=== PATIENT | male | born 1950 ===

== ENCOUNTER 2022-06-26 10:48 | Inpatient (IN) | payer OTHER, MEDICARE ==
[2022-06-26] VITALS (488 sets, daily range): BP systolic 100–129; BP diastolic 70–83; PULSE 81–93; TEMP 97.3–98.7; O2SAT 90–100
[~2022-06-26] VITALS: Ht 180.3 cm; Wt 88.7 kg
--- NOTE | 2022-06-26 13:12 | NUR ---
PATIENT TAKEN TO SURGERY AT THIS FOR TRACHEOSTOMY AND PEG TUBE PLACEMENT.
--- NOTE | 2022-06-26 13:32 | NUR ---
PT ARRIVES TO ICU ROOM 5 AT THIS TIME. DIRECT ADMIT FROM DR. TAVERA. PT TO UNDERGO TRACHEOSTOMY AND PEG TUBE PLACEMENT AT 1500 TODAY DUE TO THROAT MASS.
[2022-06-26] MEDS ORDERED: PROAIR HFA0.09 MG/AC IH (14:20)
[2022-06-26] MEDS ORDERED: TYLENOL 325MG325 MG PO (14:20)
[2022-06-26] MEDS ORDERED: ZYLOPRIM 100MG100 MG PO (14:21)
[2022-06-26] MEDS ORDERED: CALCIUM 600600 MG PO (14:22)
[2022-06-26] MEDS ORDERED: ASPIRIN E.C. 8181 MG PO (14:22)
[2022-06-26] MEDS ORDERED: ZYRTEC 10MG10 MG PO (14:23)
[2022-06-26] MEDS ORDERED: FLONASEALLERGY NS (14:24)
[2022-06-26] MEDS ORDERED: MOBIC15 MG PO (14:25)
[2022-06-26] MEDS ORDERED: MULTI VITAMINS1 TAB PO (14:26)
[2022-06-26] MEDS ORDERED: FLOMAX 0.40.4 MG/CAP PO (14:26)
[2022-06-26 14:38] LABS: BASO % 0.5 % (0.0-2.0); EOS # 0.1 K/mm3 (0.0-0.7); EOS % 1.4 % (0.0-4.0); GRAN # 5.3 K/mm3 (1.4-6.5); GRAN % 63.5 % (42.2-75.2); HEMOGLOBIN 12.1 g/dl (13.5-18.0); LYMPH # 2.3 K/mm3 (1.2-3.4); MEAN CELL VOLUME 88 fl (80.0-100.0); MEAN CORPUSCULAR HEMOGLOBIN 31 pg (27-31); MEAN CORPUSCULAR HGB CONC 35 g/dl (33.0-37.0); MEAN PLATELET VOLUME 10.8 fl (7.4-10.4); MONO # 0.5 K/mm3 (0.1-0.6); MONO % 6.5 % (1.7-9.3); PLATELET COUNT 219 K/mm3 (130-400); RED BLOOD COUNT 3.95 M/mm3 (4.20-5.60); REDCELL DISTRIBUTION WIDTH-CV 12.6 % (11.5-14.5)
[2022-06-26 14:42] LABS: HEMATOCRIT 34.7 % (42.0-52.0)
[2022-06-26 14:52] LABS: ALBUMIN 3.6 gm/dL (3.4-4.8); CALCIUM 10.2 mg/dL (8.4-10.2); CREATININE, serum 0.86 mg/dL (0.72-1.25); POTASSIUM 4.6 mmol/L (3.5-4.5)
--- NOTE | 2022-06-26 17:15 | NUR ---
Pt arrived back to ICU room 5 from PACU. Trach is 6.0 shiley. PEG tube site clean, dry, and intact. Pt responsive to verbal and painful stimuli.
--- NOTE | 2022-06-26 20:30 | NUR ---
PT ASSESSMENT COMPLETED AT THIS TIME. PT IS ALERT AND ORIENTED. PT IS UNABLE TO SPEAK AT THIS TIME. HE COMMUNICATES BY WRITING. PTS TRACH SUCTIONED. VSS. PT HAS LR RUNNING AT 75ML/HR. IV ASSESSED. WATKINS ASSESSED. PEG TUBE IS COVERED BY SURGICAL DRESSING. SURGICAL DRESSING IS CLEAN AND INTACT. CALL LIGHT WITHIN REACH.
[2022-06-27] VITALS (1416 sets, daily range): BP systolic 108–126; BP diastolic 63–77; PULSE 66–96; TEMP 97.2–98.7; O2SAT 75–100
[2022-06-27 06:44] LABS: CALCIUM 9.5 mg/dL (8.4-10.2); CREATININE, serum 0.91 mg/dL (0.72-1.25); POTASSIUM 4.9 mmol/L (3.5-4.5)
[2022-06-27 06:45] LABS: BASO % 0.1 % (0.0-2.0); GRAN # 13.2 K/mm3 (1.4-6.5); HEMOGLOBIN 11.7 g/dl (13.5-18.0); LYMPH # 0.9 K/mm3 (1.2-3.4); LYMPH % 6.2 % (20.0-51.0); MEAN CELL VOLUME 92 fl (80.0-100.0); MEAN CORPUSCULAR HEMOGLOBIN 31 pg (27-31); MEAN CORPUSCULAR HGB CONC 34 g/dl (33.0-37.0); MEAN PLATELET VOLUME 11.7 fl (7.4-10.4); MONO # 0.5 K/mm3 (0.1-0.6); MONO % 3.3 % (1.7-9.3); PLATELET COUNT 214 K/mm3 (130-400); RED BLOOD COUNT 3.78 M/mm3 (4.20-5.60); REDCELL DISTRIBUTION WIDTH-CV 12.6 % (11.5-14.5)
[2022-06-27 06:50] LABS: HEMATOCRIT 34.7 % (42.0-52.0)
[2022-06-27 10:58] LABS: PHOSPHOROUS 3.7 mg/dL (2.3-4.7)
--- NOTE | 2022-06-27 13:58 | NUR ---
hothouse worker met with patient and his sisters Brenda #[phone] and Alana #[phone] to discuss discharge planning. Patient resides in [place], [place] alone and all agree that patient will require skilled care upon admission due to health decline and inability to perform trach care and feeding protocol with home health, at this time. Worker arranged for financial counselor to meet with patient and sister's and begin medicaid application. Patient is 40% Service [employer] with [facility] and has Medicare A. Sisters state that patient will need to rehab, then have his teeth pulled before he can receive cancer treatment at the [facility]. Worker presented information on advance directives and assisted patient will completion of a living will and a durable power of staff attorney for health care. Patient's sisters will pursue power of staff attorney for finances through an staff attorney. Patient's primary care provider is Dr Aguilar in [place]. Patient verbalized that he wishes to be in a facility in [place], however, will consider facilities in [place]. Worker presented Medicare.gov share options for prison and made referrals to all facilities at this time. Will await word of acceptances, on Thursday, for the following facilities. Sister's are aware that they will need to transport patient to accepting facility on Thursday. Referrals made to: [facility] has NO openings. Discharge Plan: prison facility/swing bed.
--- NOTE | 2022-06-27 19:00 | NUR ---
PT ASSESSMENT COMPLETED AT THIS TIME. VSS. PT IS ALERT AND ORIENTED. LR RUNNING AT 50ML/HR. CALL LIGHT WITHIN REACH.
--- NOTE | 2022-06-27 19:54 | NUR ---
PT HAS HAD UNEVENTFUL DAY. JUNE DC'D 1115, PT HAS VOIDED AND HAD GOOD UOP THI SHIFT. PT A70, COOPERATIVE WITH CARES AND ABLE TO MAKE NEEDS KNOWN. PT COMMUNICATES WITH CLIPBOARD/WRITING AND IS ABLE TO SPEAK SOME. TRACH CLEANED BY RT THIS AFTERNOON, SKIN AROUND TRACH LOOKS GOOD, NO REDNESS/SWELLING NOTED. PT HAS PEG TUBE IN PLACE AND FEEDINGS STARTED, TOLERATING WELL. PEG TUBE SITE IS CDI, ASSESSED WITH DR. MCNEILL THIS AM. ABD BAND STILL IN PLACE. PT HAS DENIED PAIN OR ANY CONCERNS THROUGHOUT SHIFT. SUCTIONING COMPLETED NEEDED, MINIMAL SECRETIONS NOTED. PT ON ROOM AIR. NO FURTHER CONCERNS NOTED.
[2022-06-28] VITALS (946 sets, daily range): BP systolic 104–144; BP diastolic 49–71; PULSE 82–104; TEMP 97.6–99.5; O2SAT 66–100
[2022-06-28 05:51] LABS: BASO % 0.1 % (0.0-2.0); EOS % 0.2 % (0.0-4.0); GRAN # 10.1 K/mm3 (1.4-6.5); GRAN % 71.4 % (42.2-75.2); HEMOGLOBIN 11.2 g/dl (13.5-18.0); LYMPH % 20.9 % (20.0-51.0); MEAN CELL VOLUME 93 fl (80.0-100.0); MEAN CORPUSCULAR HEMOGLOBIN 32 pg (27-31); MEAN CORPUSCULAR HGB CONC 34 g/dl (33.0-37.0); MEAN PLATELET VOLUME 11.5 fl (7.4-10.4); MONO % 6.9 % (1.7-9.3); PLATELET COUNT 177 K/mm3 (130-400); RED BLOOD COUNT 3.56 M/mm3 (4.20-5.60); REDCELL DISTRIBUTION WIDTH-CV 12.9 % (11.5-14.5)
[2022-06-28 05:55] LABS: HEMATOCRIT 33.2 % (42.0-52.0)
[2022-06-28 06:02] LABS: CALCIUM 9.5 mg/dL (8.4-10.2); CREATININE, serum 0.74 mg/dL (0.72-1.25); POTASSIUM 4.1 mmol/L (3.5-4.5)
--- NOTE | 2022-06-28 08:14 | NUR ---
REPORT RECEIVED FROM JAODN SUTTON; PATIENT CURRENTLY RESTING IN BED AND HAS LR RUNNING THROUGH A PERIPHERAL LINE IN HIS RIGHT HAND. PATIENT'S VITAL SIGNS ARE WITHIN NORMAL LIMITS THIS MORNING.
--- NOTE | 2022-06-28 13:00 | NUR ---
Cattery Operator rounds: Patient was sleeping at time of inspection and testing supervisor rounds. RN expressed a desire to let Patient continue to sleep.
[2022-06-28] MEDS ORDERED: LIPITOR 40MG TA40 MG PO (18:05)
[2022-06-28] MEDS ORDERED: LIPITOR20 MG PO (18:06)
[2022-06-28] MEDS ORDERED: OPTIVE SENSITI0.4 ML OP ×2 (18:07→18:08)
[2022-06-28] MEDS ORDERED: VOLTAREN GEL 1%1 TU TP (18:10)
--- NOTE | 2022-06-28 18:37 | NUR ---
PATIENT TRANSFERED TO MEDICAL FROM ICU VIA WHEELCHAIR ACCOMPANIED BY RN AND SISTER. ALERT AND ORIENTED X4. PATIENT WITH TRACH IN PLACE, CONNECTED TO HUMIDIFICATION, AREA CLEAN, DRY, AND INTACT. PATIENT WITH PEG TUBE IN PLACE WITH ABD BINDER IN PLACE, NO DRAINAGE NOTED. NO C/O PAIN. ORIENTED TO ROOM, CALL LIGHT, AND PHONE. LR D/C PER HOSPITALIST RUBY RAILS DEVELOPER. PATIENT ON TUBE FEEDING Q3 HOURS. PER MARINE ELECTRONICS TECHNICIAN, LAST TUBE FEEDING AT 1700. PATIENT REQUESTING NEXT TUBE FEEDING AT A LATER TIME DUE TO RECENT TUBE FEEDING. DENIES ANY OTHER NEEDS AT THIS TIME.
--- NOTE | 2022-06-28 21:00 | NUR ---
PATIENT WAS RECEIVED IN BED.PATIENT IS BREATHING THROUGH A TACHEOSTOMY TUBE WHICH HAS HUMIDIFIED AIR.PATIENT HAS A PEG TUBE FOR FEEDING.FEEDS ARE SCHEDULED.PATIENT WAS FED AND TOLERATED WELL.PATIENT REQUESTED TO HAVE ANOTHER FEED AT 4AM.DRESSINGS ARE CDI.PATIENT USES A URINAL AT THE BEDSIDE.PATIENT DENIES PAIN.PATIENT IS AOX4.SAFETY MEASURES IN PLACE.NO OTHER NEEDS AT THIS TIME.
[2022-06-29] VITALS (7 sets, daily range): BP systolic 101–136; BP diastolic 50–70; PULSE 87–96; TEMP 97.3–98.9
--- NOTE | 2022-06-29 05:52 | NUR ---
PATIENT HAS HAD A CALM NIGHT.TRACHEOSTOMY AND PEG TUBE IN PLACE.PATIENT DENIES PAIN.PATIENT WAS FED THROUGH THE PEG TUBE.PATIENT RETAINED THE FEEDS.TRACHEOSTOMY CARE WAS DONE BY RT.PATIENT USES A URINAL TO VOID AT THE BEDSIDE INDEPENDENTLY.AM BG 70.SAFETY MEASURES IN PLACE.NO OTHWER NEEDS AT THIS TIME.
--- NOTE | 2022-06-29 17:30 | NUR ---
PATIENT CURRENTLY RESTING IN BED WATCHING TV. PATIENT VISITED [facility] TODAY. ALERT AND ORIENTED X4. SHIFT ASSESSMENT PERFORMED AND MEDICATIONS ADMINISTERED PER ORDERS. TRACH CARE PROVIDED. PERIPHERAL IVS TO RIGHT HAND FLUSHED, NO REDNESS, WARMTH, OR DRAINAGE NOTED. IVS PATENT. PEG TUBE IN PLACE, NO C/O PAIN TO AREA. PEG TUBE WITHOUT COMPLICATIONS, TOLERATING FEEDING WELL, DRESSING CLEAN, DRY, AND INTACT. ABD BINDER IN PLACE. C/O PAIN 3/10 TO RIGHT KNEE, TREATED WITH PRN APAP, WHICH WAS EFFECTIVE. NO FURTHER COMPLAINTS OR CONCERNS. LAYING IN BED AT THIS TIME, CALL LIGHT WITHIN REACH, BED IN LOWEST, LOCKED POSITION.
--- NOTE | 2022-06-29 19:17 | NUR ---
PATIENT IS SITTING AT SIDE OF BED USING ORAL SUCTIONING. PATIENT DENIES PAIN, NEEDS OR CONCERNS AT THIS TIME. PATIENT HAS CALL LIGHT WITHIN REACH AND IS ENCOURAGED TO USE WITH ANY NEEDS OR CONCERNS. PATIENT STATES UNDERSTANDING.
[2022-06-30 03:16] VITALS: BP 122/60; PULSE 92; TEMP 98.9
[2022-06-30 06:08] LABS: BASO % 0.2 % (0.0-2.0); EOS # 0.3 K/mm3 (0.0-0.7); EOS % 2.9 % (0.0-4.0); GRAN % 70.1 % (42.2-75.2); HEMOGLOBIN 10.4 g/dl (13.5-18.0); LYMPH % 19.7 % (20.0-51.0); MEAN CELL VOLUME 89 fl (80.0-100.0); MEAN CORPUSCULAR HEMOGLOBIN 31 pg (27-31); MEAN CORPUSCULAR HGB CONC 35 g/dl (33.0-37.0); MEAN PLATELET VOLUME 11.7 fl (7.4-10.4); MONO # 0.7 K/mm3 (0.1-0.6); MONO % 6.7 % (1.7-9.3); PLATELET COUNT 188 K/mm3 (130-400); RED BLOOD COUNT 3.35 M/mm3 (4.20-5.60); REDCELL DISTRIBUTION WIDTH-CV 12.5 % (11.5-14.5)
[2022-06-30 06:10] LABS: HEMATOCRIT 29.9 % (42.0-52.0)
--- NOTE | 2022-06-30 06:22 | NUR ---
PATIENT HAD AN UNEVENTFUL NIGHT. EDUCATION WAS GIVEN ON PEG TUBE CARE AND PATIENT ASSISTED WITH HIS FEEDINGS. PATIENT DENIES PAIN, NEEDS OR CONCERNS. PATIENT HAS CALL LIGHT WITHIN HANDS. PATIENT HAS CONTINUED TO PREFER TO DO HIS OWN TRACH CARE HE WANTS TO ADJUST TO HIS "NEW NORMAL". PATIENT HAS BEEN A GOOD HISTORIAN AND HAS TOLD JOKES TO NURSE. PATIENT ENCOURAGED TO CALL WITH ANY NEEDS.
[2022-06-30 06:26] LABS: ALBUMIN 2.9 gm/dL (3.4-4.8); BILIRUBIN,TOTAL 0.6 mg/dL (0.2-1.2); CALCIUM 9.4 mg/dL (8.4-10.2); CREATININE, serum 0.74 mg/dL (0.72-1.25); MAGNESIUM 2.1 mg/dL (1.6-2.6); PHOSPHOROUS 3.8 mg/dL (2.3-4.7); POTASSIUM 3.9 mmol/L (3.5-4.5); TOTAL PROTEIN 6.5 gm/dL (6.2-8.1)
[2022-06-30 08:23] VITALS: BP 109/61; PULSE 98; TEMP 99
--- NOTE | 2022-06-30 09:00 | NUR ---
Patient is resting in bed, alert and oriented x4, Peg tube covered with abd binder. Denies any pain at this time. Assessment completed, meds provided. No other need at this time. Call light within reach.
[2022-06-30] MEDS ORDERED: [UNRECOGNIZED DRUG - MIXTURE] PEG (10:43)
--- NOTE | 2022-06-30 10:45 | NUR ---
Dancia with [facility] confirms that they cannot accept patient.
[2022-06-30 11:31] VITALS: BP 107/50; PULSE 102; TEMP 99.2
--- NOTE | 2022-06-30 13:23 | NUR ---
[facility] that [facility] current staffing have not been trained in trach care and they would not be able to provide for patient's needs.
[2022-06-30 15:40] VITALS: BP 112/62; PULSE 95; TEMP 99.5
--- NOTE | 2022-06-30 16:14 | NUR ---
Journalists And Other Writers received a phone call from [facility] ([facility]) who advised they are interested in referral but would have to submit for auth with patient's Medicare Advantage Plan, which DODIE was not aware patient had. SW faxed them clinical updates per their request. DODIE updated case management team and financial team of update in patient's insurance. SW updated patient on the above information. DOIDE also contacted patient's sister, Alana and provided update. Alana was not aware patient had an advantage plan. Alana is going to try to figure out who patient's VA SW is as she is interested in VA placements if they are an option. Discharge Plan: [facility] pending insurance auth
--- NOTE | 2022-06-30 18:44 | NUR ---
Patient is using the walker to ambulate. He got all his feedings per orders. He has mucus production. Continues with suction. Report was given to night RN.
[2022-06-30 20:16] VITALS: BP 125/60; PULSE 98; TEMP 99.3
[2022-07-01] VITALS (7 sets, daily range): BP systolic 94–119; BP diastolic 40–67; PULSE 93–104; TEMP 98.7–101.6
[2022-07-01 07:05] LABS: BASO % 0.3 % (0.0-2.0); EOS # 0.3 K/mm3 (0.0-0.7); GRAN # 7.9 K/mm3 (1.4-6.5); GRAN % 74.8 % (42.2-75.2); HEMOGLOBIN 10.4 g/dl (13.5-18.0); LYMPH # 1.7 K/mm3 (1.2-3.4); LYMPH % 16.3 % (20.0-51.0); MEAN CELL VOLUME 92 fl (80.0-100.0); MEAN CORPUSCULAR HEMOGLOBIN 31 pg (27-31); MEAN CORPUSCULAR HGB CONC 33 g/dl (33.0-37.0); MEAN PLATELET VOLUME 11.8 fl (7.4-10.4); MONO # 0.5 K/mm3 (0.1-0.6); MONO % 5.1 % (1.7-9.3); PLATELET COUNT 203 K/mm3 (130-400); RED BLOOD COUNT 3.39 M/mm3 (4.20-5.60); REDCELL DISTRIBUTION WIDTH-CV 12.4 % (11.5-14.5)
[2022-07-01 07:08] LABS: HEMATOCRIT 31.3 % (42.0-52.0)
[2022-07-01 07:21] LABS: CALCIUM 9.1 mg/dL (8.4-10.2); CREATININE, serum 0.81 mg/dL (0.72-1.25); POTASSIUM 3.7 mmol/L (3.5-4.5)
--- NOTE | 2022-07-01 12:53 | NUR ---
Manufacturing Coordinator contacted Sue at [facility] and faxed clinical updates, including order for tube feeds. Sue advised they can accept patient tomorrow and will have all needed trach/tube feed supplies by tomorrow. DODIE was contacted by [employer] and was notified that patient has authorization for [facility]. Auth #[id number] and is good until the . DODIE provided this information to Sue. DODIE facilitated a call between hospital RT and [facility] RT to assist with transition of care. DODIE updated patient that discharge plan will be tomorrow to [facility]. Patient gave a thumbs up. DODIE then contacted patient's sister, Alana who is also in agreement and will provide transport tomorrow morning, around 0930. Discharge Plan: [facility] tomorrow
--- NOTE | 2022-07-01 13:28 | NUR ---
SPOKE WITH RESPIRATORY THERAPIST ABOUT CLEANING THAT PATIENTS TRACH AT 1200. RT SAID THAT PATIENT CLEANED HIS OWN TRACH THIS AM AT 0900 AND DOES NOT NEED A CLEANING FOR THE REST OF DAY. WILL CONTINUE TO MONITOR TRACH AND CLEAN NEEDED. TRACH IS CLEAN, DRY, AND INTACT.
--- NOTE | 2022-07-01 18:31 | NUR ---
PATIENT TOLERATED ALL FEEDINGS AND FLUSHES WELL TODAY. WALKED IN THE HALLWAYS 1X WITH WALKER AND NURSE ASSIST. TRACH CARE COMPLETED THIS AM. PATIENT DOES NOT C/O ANY PAIN AND IS GENERALLY PLEASANT
[2022-07-01 20:12] LABS: BASO % 0.3 % (0.0-2.0); EOS # 0.3 K/mm3 (0.0-0.7); EOS % 2.7 % (0.0-4.0); GRAN # 7.8 K/mm3 (1.4-6.5); GRAN % 73.5 % (42.2-75.2); HEMOGLOBIN 10.1 g/dl (13.5-18.0); LYMPH # 1.5 K/mm3 (1.2-3.4); LYMPH % 13.8 % (20.0-51.0); MEAN CELL VOLUME 89 fl (80.0-100.0); MEAN CORPUSCULAR HEMOGLOBIN 30 pg (27-31); MEAN CORPUSCULAR HGB CONC 34 g/dl (33.0-37.0); MEAN PLATELET VOLUME 11.1 fl (7.4-10.4); MONO % 9.3 % (1.7-9.3); PLATELET COUNT 210 K/mm3 (130-400); RED BLOOD COUNT 3.33 M/mm3 (4.20-5.60); REDCELL DISTRIBUTION WIDTH-CV 12.2 % (11.5-14.5)
[2022-07-01 20:13] LABS: HEMATOCRIT 29.7 % (42.0-52.0)
[2022-07-01 21:16] LABS: COLLECTION METHOD CLEAN CATCH
[2022-07-01 21:23] LABS: URINE APPEARANCE Clear (CLEAR/HAZY); URINE BLOOD Negative (NEGATIVE); URINE COLOR Yellow (YELLOW); URINE GLUCOSE Negative (NEGATIVE); URINE KETONE Negative (NEGATIVE); URINE NITRATE Positive (NEGATIVE); URINE PROTEIN(semi-quant) Negative (NEGATIVE)
[2022-07-01 21:25] LABS: SQUAMOUS EPITHELIAL 0-2 /hpf (0-10); URINE BACTERIA None Seen /hpf (NONE SEEN); URINE RBC 0-2 /hpf (0-2)
[2022-07-02 03:31] VITALS: BP 109/51; PULSE 92; TEMP 99.2
[2022-07-02 07:56] VITALS: BP 115/50; PULSE 84; TEMP 98.5
--- NOTE | 2022-07-02 10:17 | NUR ---
SHIFT ASSESSMENT COMPLETED AND MORNING MEDICATIONS ADMINISTERED PER ORDER. PATIENT IS UP IN CHAIR, ALERT AND ORIENTED X4. NO C/O PAIN THIS MORNING. TRACH IN PLACE, AREA CLEANSED AND NEW GAUZE APPLIED, PATIENT TOLERATED WELL. PEG TUBE IN PLACE WITH ABD BINDER, NO S/SX OF INFECTION, DRESSING CDI, NO C/O PAIN TO THE AREA PER PATIENT. TOLERATED TUBE FEEDING THIS MORNING WELL, NO RESIDUAL. SCDS APPLIED, PATIENT STATES HE DOES NOT WANT THEM ON FOR MORE THAN AN HOUR BECAUSE THEY ARE UNCOMFORTABLE. LUNGS WITH RHONCHI THROUGHOUT, PHYSICIAN NOTIFIED, CHEST XRAY ORDERED, AWAITING RESULTS. NO FURTHER NEEDS NOTED AT THIS TIME, CALL LIGHT WITHIN REACH.
[2022-07-02] MEDS ORDERED: ROCEPHIN VIA1 G/VIAL IV (11:12)
[2022-07-02] MEDS ORDERED: ROXICODONE 55 MG/TAB PO (11:14)
[2022-07-02 11:26] VITALS: BP 115/50; PULSE 84; TEMP 98.5
[2022-07-02 11:38] VITALS: BP 102/61; PULSE 92; TEMP 98.3
--- NOTE | 2022-07-02 12:54 | NUR ---
Dish Room Worker attended clinical rounds with the team and patient to discharge today to [facility]. DODIE provided phone numbers for to dr pena and RN report. Dr. Agustin is accepting physician. DODIE faxed discharge orders and notified Sue at [facility] that orders were sent. Patient's sister, Alana is here and will provide transport. Discharge Plan: [facility]
--- NOTE | 2022-07-02 13:20 | NUR ---
PATIENT DISCHARGED TO [facility]USTODIAL FACILITY [facility] AT 1315. PATIENT TRANSPORTATION PROVIDED BY SISTER, KENIA. RIGHT HAND PERIPHERAL LINES BOTH REMOVED AND BANDAGE PLACED. TRACH CARE COMPLETETD PRIOR TO DEPARTURE. 1200 TUBE FEEDING ADMINISTERED PRIOR TO DEPARTURE, PATIENT TOLERATED WELL. DENIES ANY PAIN. REPORT GIVEN TO BARON AT [facility], DENIES ANY QUESTIONS REGARDING PATIENT OR PATIENT CARE. OXYGEN SATURATION AT TIME OF DISCHARGE: 96% ON RA. PEG TUBE CLAMPED, DRESSING CDI, AND ABD BINDER IN PLACE. ACCOMPANIED DOWNSTAIRS VIA WHEELCHAIR BY ARTIFICIAL FLOWERS DYER.
== END 2022-07-02 13:15 | disposition swing bed (61) | DRG 12 ==
LOC: ICU 13:03 → EDSTATUS 15:00 → SDCO 15:00 → ICU 16:12 → MEDICAL 16:12 → ICU 16:13 → MEDICAL 06-28 17:17
PROVIDERS: Internal Medicine; Physician Assistant; Student in an Organized Health Care Education/Training Program; Surgery; ADMIT Otolaryngology
PROC: 3E0G76Z Introduction of Nutritional Substance into Upper GI, Via Natural or Artificial Opening (ICD-10-PCS; 2022-06-26)
PROC: 0B110F4 Bypass Trachea to Cutaneous with Tracheostomy Device, Open Approach (ICD-10-PCS; principal; 2022-06-26 15:00)
PROC: 0DH64UZ Insertion of Feeding Device into Stomach, Percutaneous Endoscopic Approach (ICD-10-PCS; 2022-06-26 15:00)
DX: C09.1 Malignant neoplasm of tonsillar pillar (anterior) (posterior) (principal); C79.89 Secondary malignant neoplasm of other specified sites; C77.0 Secondary and unspecified malignant neoplasm of lymph nodes of head, face and neck; E44.0 Moderate protein-calorie malnutrition; N39.0 Urinary tract infection, site not specified; J45.909 Unspecified asthma, uncomplicated; M19.90 Unspecified osteoarthritis, unspecified site; E11.9 Type 2 diabetes mellitus without complications; F19.10 Other psychoactive substance abuse, uncomplicated; H91.90 Unspecified hearing loss, unspecified ear; E78.5 Hyperlipidemia, unspecified; K29.50 Unspecified chronic gastritis without bleeding; N40.0 Benign prostatic hyperplasia without lower urinary tract symptoms; F32.A Depression, unspecified; D64.9 Anemia, unspecified; M10.9 Gout, unspecified; F41.9 Anxiety disorder, unspecified; G89.29 Other chronic pain; I10 Essential (primary) hypertension; J98.8 Other specified respiratory disorders; M25.561 Pain in right knee; Z86.718 Personal history of other venous thrombosis and embolism; Z79.82 Long term (current) use of aspirin; Z88.0 Allergy status to penicillin; Z88.8 Allergy status to other drugs, medicaments and biological substances; Z68.28 Body mass index [BMI] 28.0-28.9, adult
CPT/HCPCS: A4314; A7521; J0696; J1100; J1815; J2250; J2270; J2405; J2704; J3010; J7120